=== PATIENT | female | born 1945 | race Caucasian/White ===

== ENCOUNTER 2023-01-27 17:09 | Inpatient (IN) | payer OTHER ==
[~2023-01-27] VITALS: Ht 160 cm; Wt 68.0 kg
[2023-01-27] MEDS ORDERED: LACTATED RINGER'S 1,000 ML IV ONE (21:30)
[2023-01-27] MEDS ORDERED: MORPHINE SULFATE 4 MG/ML SYR/VIAL IV ONE (21:30)
[2023-01-27] MEDS ORDERED: ONDANSETRON HCL 4 MG/2 ML VIAL IV ONE (21:30)
[2023-01-27] MEDS ORDERED: DOCUSATE SOD 100 MG CAP PO PRN (21:45)
[2023-01-27] MEDS ORDERED: IBUPROFEN 600 MG TAB PO PRN (21:45)
[2023-01-27] MEDS ORDERED: SODIUM CHLORIDE 0.9% 1,000 ML IV SCH (21:45)
[2023-01-27] MEDS ORDERED: NITROGLYCERIN 0.4 MG SL TAB SL PRN (21:45)
[2023-01-27] MEDS ORDERED: ONDANSETRON HCL 4 MG/2 ML VIAL IV PRN (21:45)
[2023-01-27] MEDS ORDERED: MORPHINE SULFATE INJ 2 MG/ml SYRG IV PRN ×2 (21:45)
[2023-01-27] MEDS ORDERED: ACETAMINOPHEN 325 MG TAB PO PRN (21:45)
[2023-01-27 21:53] LABS: Basophils # (auto) 0 10 ^3/uL (0-0.2); Basophils % (auto) 0.2 % (0.0-2.0); Eosinophils # (auto) 0 10 ^3/uL (0-0.8); Eosinophils % (auto) 0.1 % (0.0-7.0); Hemoglobin 13.1 g/dL (12.2-16.2); Lymphocytes # (auto) 1.8 10 ^3/uL (0.4-5.4); Lymphocytes % (auto) 17.4 % (10.0-50.0); Mean Corpuscular Hemoglobin 30.8 pg (28.0-32.0); Mean Corpuscular Hgb Conc. 33.5 g/dL (32.0-36.0); Monocytes # (auto) 0.9 10 ^3/uL (0-1.3); Monocytes % (auto) 8.3 % (0.0-12.0); Neutrophils # (auto) 7.6 10 ^3/uL (1.6-8.6); Red Blood Cells 4.24 10^6/uL (4.0-5.20); Red Cell Distribution Width 12.9 % (11.8-14.3); White Blood Cell 10.2 10^3/uL (4.4-10.8)
[2023-01-27] MEDS ORDERED: hydrALAZINE HCL 20 MG/ML VL IV PRN (22:00)
[2023-01-27 22:07] LABS: Albumin 3.7 g/dL (3.4-5.0); Potassium 3.7 mmol/L (3.5-5.1)
[2023-01-27 22:09] LABS: Bilirubin, Total 0.4 mg/dL (0.2-1.0); Total Protein 6.8 g/dL (6.4-8.2)
[2023-01-27 22:18] LABS: INR 1.06 (0.9-1.15); Partial Thromboplastin Time 28.7 SEC (24.5-34.5)
[2023-01-27] MEDS ORDERED: levoFLOXacin 250MG 50 ML IV ONE (23:30)
[2023-01-28] MEDS ORDERED: ALBUTEROL SULF 2.5 MG/0.5ML(0.5%) NEB SOLN NEB ONE (01:15)
[2023-01-28] MEDS ORDERED: LEVOTHYROXINE SODIUM 25 MCG TAB PO SCH (07:00)
[2023-01-28 07:01] LABS: Basophils # (auto) 0 10 ^3/uL (0-0.2); Basophils % (auto) 0.2 % (0.0-2.0); Eosinophils # (auto) 0.1 10 ^3/uL (0-0.8); Eosinophils % (auto) 0.6 % (0.0-7.0); Hemoglobin 12.3 g/dL (12.2-16.2); Lymphocytes # (auto) 1.6 10 ^3/uL (0.4-5.4); Lymphocytes % (auto) 16.8 % (10.0-50.0); Mean Corpuscular Hemoglobin 30.7 pg (28.0-32.0); Mean Corpuscular Hgb Conc. 33.2 g/dL (32.0-36.0); Mean Corpuscular Volume 92.6 fL (80.0-100.0); Monocytes # (auto) 0.7 10 ^3/uL (0-1.3); Monocytes % (auto) 7.9 % (0.0-12.0); Neutrophils # (auto) 7.1 10 ^3/uL (1.6-8.6); Neutrophils % (auto) 74.5 % (37.0-80.0); Nucleated Red Blood Cells % 0.1 %; Red Cell Distribution Width 12.8 % (11.8-14.3); White Blood Cell 9.5 10^3/uL (4.4-10.8)
[2023-01-28 07:42] LABS: Albumin 3.1 g/dL (3.4-5.0); BUN/Creatinine Ratio 17.9 (10.0-20.0); Bilirubin, Total 0.4 mg/dL (0.2-1.0); Calcium 8.5 mg/dL (8.5-10.1); Total Protein 6.1 g/dL (6.4-8.2)
[2023-01-28 09:00] VITALS: BP 141/62
[2023-01-28] MEDS ORDERED: levoFLOXacin 500MG 100 ML IV SCH (10:00)
[2023-01-28] MEDS ORDERED: levoFLOXacin 250MG 50 ML IV SCH (10:00)
[2023-01-28] MEDS ORDERED: ENOXAPARIN SOD 40 MG/0.4 ML SYRINGE SC SCH (10:00)
[2023-01-28] MEDS ORDERED: LISINOPRIL 5 MG TAB PO SCH (10:00)
[2023-01-28] MEDS ORDERED: ATORVASTATIN 20 MG TAB PO SCH (22:00)
== END 2023-01-28 09:43 | disposition short-term general hospital (02) | DRG 536 ==
LOC: ER 17:09 → EDBD 17:09 → TELE 21:46
PROVIDERS: ADMIT Nurse Practitioner Family; ATTEND Nurse Practitioner Family
DX: S72.002A Fracture of unspecified part of neck of left femur, initial encounter for closed fracture (principal); J98.11 Atelectasis; W18.39XA Other fall on same level, initial encounter; E03.9 Hypothyroidism, unspecified; I10 Essential (primary) hypertension; E78.5 Hyperlipidemia, unspecified; Z88.5 Allergy status to narcotic agent; Y93.89 Activity, other specified; Y92.098 Other place in other non-institutional residence as the place of occurrence of the external cause; Y99.8 Other external cause status
CPT/HCPCS: 36415; 71045; 73501; 73700; 80053; 84443; 85025; 85610; 85730; 87426; 93005; 94640; 96361; 96365; 96375; G0378; J2405